=== PATIENT | female | born 1990 | race Caucasian/White ===

== ENCOUNTER 2017-11-15 21:17 | Inpatient (IN) | payer MEDICAID ==
[~2017-11-15 21:17] MED LIST: ACETAMINOPHEN 325 MG TAB PO PRN; ALBUAER3 INH; ALBUTEROL SULFATE 90 MCG/ACT HFA 8 GM INHALER INH PRN; ALPR.5 PO; AMIT10TA6 PO; AMITRIPTYLINE HCL 10 MG TAB PO PRN; DILA2TAB4 PO; LACTULOSE SYRUP 20 GM/30 ML CUP PO PRN; MAGNESIUM HYDROXIDE SUSP 30 ML CUP PO PRN; NALOXONE HCL 0.4 MG/ML AMP IV PUSH PRN; ONDANSETRON HCL 4 MG/2 ML VIAL IVP PRN; PIPERACIL-TAZO 4.5 GM PREMIX 100 ML IV SCH; ROPI1TAB PO; SENNOSIDES 8.6 MG TAB PO PRN; SODIUM CHLORIDE 0.9% FLUSH 10 ML FLUSH IV FLUSH PRN; TEMAZEPAM 15 MG CAP PO PRN; TRAM50 PO; VEDO1INJ IV; VEDOLIZUMAB 300 MG IV SCH; ZOFR8TAB PO
[2017-11-15 21:30] VITALS: BP 91/60; PULSE 76; RESP 20; TEMP 96.9; O2SAT 97
[2017-11-15] MEDS ORDERED: ALPRAZolam 0.5 MG TAB PO PRN (22:00)
[2017-11-15] MEDS ORDERED: traMADol HCL 50 MG TAB PO PRN (22:00)
[2017-11-15] MEDS: ONDANSETRON ODT 4 MG TAB PO SCH (22:04)
[2017-11-15] MEDS: DOCUSATE SODIUM 50 MG/SENNA 8.6 MG TAB PO SCH (22:04)
[2017-11-15] MEDS: HYDROmorphone HCL 2 MG TAB PO PRN (22:22)
[2017-11-15] MEDS: SODIUM CHLORIDE 0.9% FLUSH 10 ML FLUSH IV FLUSH SCH (22:23)
[2017-11-15] MEDS: SODIUM CHLOR 0.9% 1000 ML INJ 1,000 ML IV SCH (22:23)
[2017-11-15] MEDS: PIPERACILLIN/TAZ 4.5 GM VIAL 4.5 GM in SODIUM CHLORIDE 0.9% INJ 100 ML IV SCH (23:42)
[2017-11-16] VITALS (8 sets, daily range): BP systolic 70–91; BP diastolic 40–54; PULSE 59–107; RESP 18–20; TEMP 97–98.4; O2SAT 91–97
[2017-11-16] MEDS ORDERED: SODIUM CHLOR 0.9% 1000 ML INJ 1,000 ML IV ONE ×3 (04:30→11:30)
[2017-11-16] MEDS: ONDANSETRON ODT 4 MG TAB PO SCH ×3 (05:27→21:26)
[2017-11-16] MEDS: PIPERACILLIN/TAZ 4.5 GM VIAL 4.5 GM in SODIUM CHLORIDE 0.9% INJ 100 ML IV SCH ×4 (05:28→23:29)
[2017-11-16] MEDS: SODIUM CHLOR 0.9% 1000 ML INJ 1,000 ML IV SCH ×3 (05:34→23:30)
[2017-11-16 07:15] LABS: BASOPHIL % 0.2 % (0.0-2.0); EOSINOPHIL # 0.4 TH/MM3 (0-0.4); EOSINOPHIL % 5.4 % (0.0-4.0); HEMATOCRIT 34.1 % (35.0-46.0); HEMOGLOBIN 10.8 GM/DL (11.6-15.3); LYMPH % 28.2 % (9.0-44.0); LYMPHOCYTE # 2.3 TH/MM3 (1.0-4.8); MEAN CELL VOLUME 77.5 FL (80.0-100.0); MEAN CORPUSCULAR HEMOGLOBIN 24.6 PG (27.0-34.0); MEAN CORPUSCULAR HGB CONC 31.7 % (32.0-36.0); MEAN PLATELET VOLUME 8.7 FL (7.0-11.0); MONO % 7.5 % (0.0-8.0); MONOCYTE # 0.6 TH/MM3 (0-0.9); NEUT % 58.7 % (16.0-70.0); PLATELET COUNT 351 TH/MM3 (150-450); RED CELL DISTRIBUTION WIDTH 14.1 % (11.6-17.2); WHITE BLOOD COUNT 8.3 TH/MM3 (4.0-11.0)
[2017-11-16 08:08] LABS: BICARBONATE 25.4 MEQ/L (21.0-32.0); CALCIUM 7.3 MG/DL (8.5-10.1); CREATININE 0.84 MG/DL (0.50-1.00)
--- NOTE | 2017-11-16 08:56 | HHI.HP ---
[facility] Service [facility] Primary Care Physician Non-Staff Admission Diagnosis Abdominal pain Diagnoses: (1) Exacerbation of Crohn's disease Diagnosis: Principal Chief Complaint: Abdominal pain Travel History International Travel<30 Days: No Contact w/Intl Traveler <30 Da: No Traveled to Known Affected Are: No History of Present Illness Written by Kavita Shelton, acting as scribe for Dr. Vásquez on 11/16/17 at 08:49. Ms. Santizo is a 27-year-old female patient with a known medical history of Crohn's disease with history of right hemicolectomy, depression, anxiety who presented to the ED with complaints of right lower quadrant abdominal pain. Patient states that she has been having worsening abdominal pain in her right lower quadrant and loose stools for the last 3 days with roughly 5 bouts of diarrhea per day. Denies any recent hematochezia. Denies any fever, chills. Does admit to nausea and vomiting. Has been unable to keep anything down by mouth for 3 days. Patient does have a history of Crohn's disease with history of multiple hospitalizations related to her disease. Per GI she has been receiving Entyvio for the last few month every 90 days for her disease. At the time of assessment patient still complains of abdominal pain, worsening with breakfast this morning. Denies any diarrhea since hospitalization. Does see a GI specialist in [place], Dr. Hassan. Hemoglobin of 10.8, hematocrit 34.[address] showing that the the transverse and descending colon showing significant wall thickening with edema and some pericolonic vascular engorgement and inflammation, and the small bowel tract is mildly distended and contains stool in the distal small bowel, features suggestive of partial small- bowel obstruction. Review of Systems Constitutional: DENIES: Fever, Chills Eyes: DENIES: Blurred vision, Diplopia Respiratory: DENIES: Cough, Sputum production, Shortness of breath Cardiovascular: DENIES: Chest pain Gastrointestinal: COMPLAINS OF: Abdominal pain, Diarrhea, Nausea, Vomiting, DENIES: Bloody stools, Constipation Psychiatric: COMPLAINS OF: Anxiety Except as stated in HPI: all other systems reviewed are Neg Past Family Social History Past Medical History Anxiety Depression Crohn's disease Bipolar depression Restless leg syndrome Chronic anemia Fibromyalgia Past Surgical History Bilateral oophorectomy for ovarian cysts stent Right hemicolectomy Anterior cutaneous fistula Reported Medications Active Ultram (Tramadol HCl) 50 Mg Tab 50 Mg PO Q8H PRN Dilaudid (Hydromorphone HCl) 2 Mg Tab 2 Mg PO Q4H PRN Reported Entyvio Inj (Vedolizumab Inj) 300 Mg Inj 300 Mg IV [id number] Ropinirole 1 Mg Tab 1.5 Mg PO HS Proair Hfa 8.5 GM Inh (Albuterol Sulfate) 90 Mcg/Act Aer 2 Puff INH Q4-6H PRN 108 mcg/actuation Zofran (Ondansetron HCl) 8 Mg Tab 8 Mg PO TID Amitriptyline (Amitriptyline HCl) 10 Mg Tab 10 Mg PO HS PRN Xanax (Alprazolam) 0.5 Mg Tab 0.5 Mg PO Q8H PRN Allergies: Coded Allergies: No Known Allergies (Unverified Allergy, Unknown, 11/15/17) Active Ordered Medications Current Medications Medications (Trade) Dose Ordered Sig/Miguel Route Start Time Stop Time Status Last Admin (Proair Hfa Inh) 2 puff Q4HR PRN INH 11/15/17 00:00 (Xanax) 0.5 mg Q8HR PRN PO 11/15/17 22:00 11/15/17 22:22 (Elavil) 10 mg HS PRN PO 11/15/17 21:00 (Dilaudid) 2 mg Q4HR PRN PO 11/15/17 20:00 11/15/17 22:22 (Requip) 1.5 mg HS PO 11/15/17 21:00 (Ultram) 50 mg Q8HR PRN PO 11/15/17 22:00 (Zofran Odt) 8 mg Q8HR PO 11/15/17 22:00 11/16/17 05:27 Non-Formulary Medication 300 mg [id number] IV 11/15/17 18:15 Future Hold Sodium Chloride 1,000 ml @ 100 mls/hr Q10H IV 11/15/17 18:10 11/16/17 05:34 (NS Flush) 2 ml UNSCH PRN IV FLUSH 11/15/17 18:15 (NS Flush) 2 ml BID IV FLUSH 11/15/17 21:00 11/15/17 22:23 (Tylenol) 650 mg Q4HR PRN PO 11/15/17 20:00 (Zofran Inj) 4 mg Q6HR PRN IVP 11/15/17 19:00 (Restoril) 15 mg HS PRN PO 11/15/17 18:15 (Narcan Inj) 0.4 mg UNSCH PRN IV PUSH 11/15/17 18:15 (Leah-Colace) 1 tab BID PO 11/15/17 21:00 (Milk Of Magnesia Liq) 30 ml Q12HR PRN PO 11/15/17 21:00 (Senokot) 17.2 mg Q12HR PRN PO 11/15/17 21:00 (Dulcolax Supp) 10 mg DAILY PRN RECTAL 11/16/17 09:00 (Lactulose Liq) 30 ml DAILY PRN PO 11/15/17 20:00 Piperacillin Sod/ Tazobactam Sod 4.5 gm/Sodium Chloride 100 ml @ 200 mls/hr Q6HR IV 11/16/17 00:00 11/16/17 05:28 Family History Family medical history significant for DM, HTN and dyslipidemia. Social History Does admit smoking 1/4-1/2ppd cigarettes for 9 years. Denies any alcohol use. Denies any illicit drug use. Physical Exam Vital Signs Vital Signs Date Time Temp Pulse Resp B/P (MAP) Pulse Ox O2 Delivery O2 Flow Rate FiO2 11/16/17 07:30 97.0 65 20 86/54 (65) 96 11/16/17 06:05 59 74/52 (59) 11/16/17 04:15 75 18 70/40 (50) 96 11/16/17 01:09 96 21 11/16/17 00:00 97.4 92 20 85/53 (64) 96 11/15/17 21:30 96.9 76 20 91/60 (70) 97 Physical Exam GENERAL: This is a well-nourished, well-developed patient, in no apparent distress. SKIN: No rashes, ecchymoses or lesions. Warm and dry. HEAD: Atraumatic. Normocephalic. EYES: Pupils equal round and reactive. Extraocular motions intact. No scleral icterus. No injection or drainage. ENT: Nose without bleeding, purulent drainage or septal hematoma. Throat without erythema, tonsillar hypertrophy or exudate. Uvula midline. Airway patent. NECK: Trachea midline. No JVD or lymphadenopathy. Supple, nontender, no meningeal signs. CARDIOVASCULAR: Regular rate and rhythm without murmurs, gallops, or rubs. RESPIRATORY: Clear to auscultation. Breath sounds equal bilaterally. No wheezes , rales, or rhonchi. GASTROINTESTINAL: Abdomen soft, nondistended. Pain to palpation in right lower quadrant, pressure-like in nature. MUSCULOSKELETAL: Extremities without clubbing, cyanosis, or edema. No joint tenderness, effusion, or edema noted. NEUROLOGICAL: Awake and alert. Cranial nerves II through XII intact. Motor and sensory grossly within normal limits. Five out of 5 muscle strength in all muscle groups. Normal speech. Laboratory Laboratory Tests Test 11/16/17 06:40 11/16/17 08:27 White Blood Count 8.3 Red Blood Count 4.40 Hemoglobin 10.8 Hematocrit 34.1 Mean Corpuscular Volume 77.5 Mean Corpuscular Hemoglobin 24.6 Mean Corpuscular Hemoglobin Concent 31.7 Red Cell Distribution Width 14.1 Platelet Count 351 Mean Platelet Volume 8.7 Neutrophils (%) (Auto) 58.7 Lymphocytes (%) (Auto) 28.2 Monocytes (%) (Auto) 7.5 Eosinophils (%) (Auto) 5.4 Basophils (%) (Auto) 0.2 Neutrophils # (Auto) 5.0 Lymphocytes # (Auto) 2.3 Monocytes # (Auto) 0.6 Eosinophils # (Auto) 0.4 Basophils # (Auto) 0.0 CBC Comment AUTO DIFF Differential Comment AUTO DIFF CONFIRMED Blood Urea Nitrogen 12 Creatinine 0.84 Random Glucose 75 Calcium Level 7.3 Sodium Level 141 Potassium Level 3.9 Chloride Level 108 Carbon Dioxide Level 25.4 Anion Gap 8 Estimat Glomerular Filtration Rate 81 Result Diagram: 11/16/1740 11/16/17639 Septic Shock Reassessment Septic shock perfusion: reassessment completed Caprini VTE Risk Assessment Caprini VTE Risk Assessment: No/Low Risk (score <= 1) Caprini Risk Assessment Model Point Value = 1 Point Value = 2 Point Value = 3 Point Value = 5 Age 41-60 Minor surgery BMI > 25 kg/m2 Swollen legs Varicose veins or History of unexplained or recurrent spontaneous Oral contraceptives or hormone replacement Sepsis (< 1 month) Serious lung disease, including pneumonia (< 1 month) Abnormal pulmonary function Acute myocardial infarction Congestive heart failure (< 1 month) History of inflammatory bowel disease Medical patient at bed rest Age 61-74 Arthroscopic surgery Major open surgery (> 45 min) Laparoscopic surgery (> 45 min) Malignancy Confined to bed (> 72 hours) Immobilizing plaster cast Central venous access Age >= 75 History of VTE Family history of VTE Factor V Leiden Prothrombin [id number] Lupus anticoagulant Anticardiolipin antibodies Elevated serum homocysteine Heparin-induced thrombocytopenia Other congenital or acquired thrombophilia Stroke (< 1 month) Elective arthroplasty Hip, pelvis, or leg fracture Acute spinal cord injury (< 1 month) Prophylaxis Regimen Total Risk Factor Score Risk Level Prophylaxis Regimen 0-1 Low Early ambulation 2 Moderate Order ONE of the following: *Sequential Compression Device (SCD) *Heparin 5000 units SQ BID 3-4 Higher Order ONE of the following medications: *Heparin 5000 units SQ TID *Enoxaparin/Lovenox 40 mg SQ daily (WT < 150 kg, CrCl > 30 mL/min) *Enoxaparin/Lovenox 30 mg SQ daily (WT < 150 kg, CrCl > 10-29 mL/min) *Enoxaparin/Lovenox 30 mg SQ BID (WT < 150 kg, CrCl > 30 mL/min) AND/OR *Sequential Compression Device (SCD) 5 or more Highest Order ONE of the following medications: *Heparin 5000 units SQ TID (Preferred with Epidurals) *Enoxaparin/Lovenox 40 mg SQ daily (WT < 150 kg, CrCl > 30 mL/min) *Enoxaparin/Lovenox 30 mg SQ daily (WT < 150 kg, CrCl > 10-29 mL/min) *Enoxaparin/Lovenox 30 mg SQ BID (WT < 150 kg, CrCl > 30 mL/min) AND *Sequential Compression Device (SCD) Assessment and Plan Assessment and Plan Ms. Santizo is a 27-year-old female patient with a known medical history of Crohn's disease, depression, anxiety who presented to the ED with complaints of right lower quadrant abdominal pain. Exacerbation of Crohn's disease with associated abdominal pain, nausea and vomiting x [address] scan reviewed showing evidence of active colitis in the descending and transverse colon and possible partial small-bowel obstruction Patient admits to multiple hospitalizations per year for Crohn's disease exacerbation. GI consulted and seen patient, appreciate further input and recommendations. Failure of previous conventional therapy and three different biological agents in the past. GI started on Asacol. Will add Bentyl to medication regimen. Control pain, IV Dilaudid available PRN, monitor BP. Continue IV antibiotics, Zosyn IV. Continue IVF. Status post 3 L NS bolus. BP labile, continue to monitor trends closely. Control nausea, scheduled Zofran. Keep on liquid diet for now. Continue IV steroids. Chronic anxiety: Continue home Xanax. DVT Prophylaxis: SCDs. This note was transcribed by PILAR Marshall. I, Dr. Mary Vásquez personally performed the history, physical exam, and medical decision making; and confirmed the accuracy of the information in the transcribed note. Authenticated by Dr. Mary Vásquez on 11/16/17 at 08:49. Kavita Shelton Nov 16, 2017 08:56 Mary Vásquez MD Nov 16, 2017 17:24
[2017-11-16] MEDS: DOCUSATE SODIUM 50 MG/SENNA 8.6 MG TAB PO SCH ×3 (08:57→21:26)
[2017-11-16] MEDS: SODIUM CHLORIDE 0.9% FLUSH 10 ML FLUSH IV FLUSH SCH ×2 (08:57→21:27)
[2017-11-16] MEDS ORDERED: BISACODYL 10 MG SUPP RECTAL PRN (09:00)
[2017-11-16 09:13] LABS: TOTAL PROTEIN 5.8 GM/DL (6.4-8.2)
--- NOTE | 2017-11-16 10:40 | MB ---
cc: JOSH SEVERINO MD DATE OF CONSULTATION: 11/16/17 REASON FOR CONSULTATION Known Crohn's disease. HISTORY OF PRESENT ILLNESS A 27-year-old female patient with a known case of ileocolonic Crohn's disease diagnosed 11 years ago complicated by intestinal obstruction requiring right hemicolectomy, followed by another complication in the form of anterior cutaneous fistula connecting to the bowel and scar of previous . The patient was treated with aggressive treatment including three different types of biological agents without any response who had several exacerbations of her Crohn's disease over the last few years requiring treatment with a new biological agent using Entyvio every 90 days that was started a few months ago. The patient presented to the hospital complaining of progressive abdominal pain mostly right upper quadrant, increasing severity over the last few days to a degree that she required hospitalization. The patient also complained of nausea especially with eating solid food but denied any vomiting. Denies any change in weight or appetite. She did complain of loose bowel movement but no blood and she is passing gas. The patient was seen in the emergency room, had laboratory testing that is showing evidence of anemia with a hemoglobin of 10.8, hematocrit 34.1. Her CAT scan did show that the transverse and descending colon showing significant wall thickening with edema and some pericolonic vascular engorgement and inflammation, and the small bowel tract is mildly distended and contains stool in the distal small bowel, features suggestive of partial small-bowel obstruction. The patient was admitted for further evaluation. PAST MEDICAL HISTORY Crohn's disease diagnosed 11 years ago. PAST SURGICAL HISTORY 1. Anterior cutaneous fistula 2. Right hemicolectomy. 3. Bilateral oophorectomy for ovarian cysts. CURRENT MEDICATIONS 1. Currently on Entyvio every 90 days. 2. Alprazolam. 3. Tramadol. 4. Zofran. 5. Amitriptyline. 6. Dulcolax. 7. Milk of Magnesia. 8. Lactulose. ALLERGIES NO KNOWN DRUG ALLERGIES. PSYCHOSOCIAL HISTORY The patient is and mother of a 5-year-old boy. Denies IV drug use. FAMILY HISTORY Noncontributory. REVIEW OF SYSTEMS All 14-point review of systems negative other than the ones in the History of Present Illness. PHYSICAL EXAMINATION GENERAL: The patient was found to be comfortable, not in distress or in pain. Hemodynamically stable. HEAD AND NECK EXAMINATION: Normocephalic, atraumatic. Pupils equal and reactive to light. Slightly pallor. NECK: Supple neck. No lymphadenopathy. No thyromegaly. CHEST: Clear to auscultation bilaterally. No crackles or wheezes. HEART: Regular rate and rhythm. No murmurs. ABDOMEN: Abdomen showing scars of previous surgeries. Hypoactive bowel sounds. Minimal distension. No hepatosplenomegaly. No palpable masses. EXTREMITIES: Normal pulses. No edema. NEUROLOGIC EXAMINATION: Cranial nerves II through XII are grossly intact. No motor or sensory deficits. SKIN: No rashes. LABORATORY DATA Labs showed white count 8.3, hemoglobin 10.8, hematocrit 34.1, MCV and MCH low, platelet count of 351. Chemistry showing normal electrolytes. IMAGING CT scan as in History of Present Illness. ASSESSMENT AND PLAN A 27-year-old female patient who is known to have Crohn's disease for 11 years who presented with the following problems: 1. Abdominal pain, nausea of several days' duration. 2. CT scan showing evidence of active colitis in the descending and transverse colon and possible partial small-bowel obstruction. 3. Failure of previous conventional therapy and three different biological agents in the past. 4. Status post hemicolectomy and fistula formation. 5. 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 Iron deficiency anemia. RECOMMENDATION 1. We will keep the patient on a liquid diet. 2. Pain control. 3. IV Solu-Medrol. 4. Asacol ( effective for Colonic Crohn's) 5. Review previous colonoscopy reports from previous hospitalization in [place]. 6. Conservative approach. 7. Further recommendations to follow. Thank you for the consult. Josh MELVIN/BJF /8:32 AM /9:48 AM RAMIREZ
[2017-11-16] MEDS: HYDROmorphone HCL 2 MG TAB PO PRN ×3 (11:49→21:26)
[2017-11-16] MEDS: DICYCLOMINE HCL 20 MG TAB PO SCH ×3 (13:00→21:00)
[2017-11-16] MEDS: MESALAMINE HD 800 MG DELAYED RELEASE TAB PO SCH ×2 (14:11→21:26)
[2017-11-17] VITALS: BP 82/51; PULSE 76; RESP 18; TEMP 99; O2SAT 95
[2017-11-17] MEDS: ONDANSETRON ODT 4 MG TAB PO SCH (05:52)
[2017-11-17] MEDS: MESALAMINE HD 800 MG DELAYED RELEASE TAB PO SCH (05:52)
[2017-11-17] MEDS: HYDROmorphone HCL 2 MG TAB PO PRN ×2 (05:53→10:48)
[2017-11-17] MEDS: PIPERACILLIN/TAZ 4.5 GM VIAL 4.5 GM in SODIUM CHLORIDE 0.9% INJ 100 ML IV SCH ×2 (05:53→12:07)
[2017-11-17 08:00] VITALS: BP 94/62; PULSE 61; RESP 12; TEMP 98.2; O2SAT 96
[2017-11-17] MEDS: SODIUM CHLORIDE 0.9% FLUSH 10 ML FLUSH IV FLUSH SCH (09:00)
[2017-11-17] MEDS: DICYCLOMINE HCL 20 MG TAB PO SCH ×2 (09:00→12:13)
[2017-11-17] MEDS: DOCUSATE SODIUM 50 MG/SENNA 8.6 MG TAB PO SCH (09:00)
--- NOTE | 2017-11-17 09:10 | HHI.PR ---
Subjective Remarks Feels much better. Minimal abd pain , no fever or chils no diarhea . No n/v/. [place] to keep down food regular. Cleared by GI for DC Objective Vitals Vital Signs Date Time Temp Pulse Resp B/P (MAP) Pulse Ox O2 Delivery O2 Flow Rate FiO2 11/17/17 00:00 99.0 76 18 82/51 (61) 95 11/16/17 22:13 21 11/16/17 20:00 98.4 67 20 91/54 (66) 96 11/16/17 15:50 97.1 74 20 89/53 (65) 97 11/16/17 11:50 98.0 107 20 90/52 (65) 91 I/O 11/16/17 11/16/17 11/16/17 11/17/17 11/17/17 11/17/17 07:00 15:00 23:00 07:00 15:00 23:00 Intake Total 2210 ml 2100 ml 972 ml 1090 ml Balance 2210 ml 2100 ml 972 ml 1090 ml Intake Oral 240 ml 360 ml 240 ml IV Total 1970 ml 2100 ml 612 ml 850 ml # Voids 2 8 3 # Bowel Movements 2 2 Result Diagram: 11/16/17 0640 11/16/17 0640 Objective Remarks GENERAL: This is a well-nourished, well-developed patient, in no apparent distress. CARDIOVASCULAR: Regular rate and rhythm without murmurs, gallops, or rubs. RESPIRATORY: Clear to auscultation. Breath sounds equal bilaterally. No wheezes , rales, or rhonchi. GASTROINTESTINAL: Abdomen soft, nondistended. Pain to palpation in right lower quadrant, pressure-like in nature. MUSCULOSKELETAL: Extremities without clubbing, cyanosis, or edema. No joint tenderness, effusion, or edema noted. NEUROLOGICAL: Awake and alert. Cranial nerves II through XII intact. Motor and sensory grossly within normal limits. Five out of 5 muscle strength in all muscle groups. Normal speech. A/P Problem List: (1) Exacerbation of Crohn's disease ICD Code: K50.90 - Crohn's disease, unspecified, without complications Status: Acute Assessment and Plan Ms. Santizo is a 27-year-old female patient with a known medical history of Crohn's disease, depression, anxiety who presented to the ED with complaints of right lower quadrant abdominal pain. Exacerbation of Crohn's disease with associated abdominal pain, nausea and vomiting x 3 days. Iron deficiency anemia. CT scan reviewed showing evidence of active colitis in the descending and transverse colon and possible partial small-bowel obstruction Patient admits to multiple hospitalizations per year for Crohn's disease exacerbation. GI consulted and seen patient, appreciate further input and recommendations. Failure of previous conventional therapy and three different biological agents in the past. GI started on Asacol. Will add Bentyl to medication regimen. Control pain, IV Dilaudid available PRN, monitor BP. Continue IV antibiotics, Zosyn IV. Continue IVF. Status post 3 L NS bolus. BP labile, continue to monitor trends closely. Control nausea, scheduled Zofran. Keep on liquid diet for now. Continue IV steroids. Continue Asacol. Conservative approach Chronic anxiety: Continue home Xanax. DVT Prophylaxis: SCDs. Improving. DC plan: cleared by GI DC home Discharge Planning DC home in stable condition to follow up as OP with PC and consultants Diet regular Diet as tolerated Activity Ad katie as tolerated Medications per med reconciliations Mary Vásquez MD Nov 17, 2017 09:10
[2017-11-17] MEDS ORDERED: MESA1TAB2 PO (09:19)
[2017-11-17] MEDS ORDERED: DICY20TA10 PO (09:19)
[2017-11-17] MEDS ORDERED: MEDR4PAK PO (09:19)
[2017-11-17] MEDS ORDERED: METR-1 PO (09:20)
[2017-11-17] MEDS ORDERED: CIPR500T2 PO (09:20)
--- NOTE | 2017-11-17 09:20 | HHI.DCPOC ---
Discharge Care Plan Goals to Promote Your Health * To prevent worsening of your condition and complications * To maintain your health at the optimal level Directions to Meet Your Goals Take your medications as prescribed Follow your dietary instruction Follow activity as directed Keep your appointments as scheduled Take your immunizations and boosters as scheduled If your symptoms worsen call your PCP, if no PCP go to Urgent Care Center or Emergency Room Smoking is Dangerous to Your Health. Avoid second hand smoke Call the 24-hour hour crisis hotline for domestic abuse at Mary Vásquez MD Nov 17, 2017 09:20
[2017-11-17] MEDS: SODIUM CHLOR 0.9% 1000 ML INJ 1,000 ML IV SCH (10:54)
[2017-11-17] MEDS ORDERED: DILA2TAB4 PO (11:55)
[2017-11-17] MEDS ORDERED: TRAM50 PO (11:55)
[2017-11-17 12:00] VITALS: BP 85/58; PULSE 83; RESP 14; TEMP 97.8; O2SAT 93
--- NOTE | 2017-11-17 13:56 | HHI.GIFU ---
Subjective Remarks Feeling better and tolerating diet well, requesting to go home. Objective Vitals I&O Vital Signs Date Time Temp Pulse Resp B/P (MAP) Pulse Ox O2 Delivery O2 Flow Rate FiO2 11/17/17 12:00 97.8 83 14 85/58 (67) 93 11/17/17 08:00 98.2 61 12 94/62 (73) 96 11/17/17 00:00 99.0 76 18 82/51 (61) 95 11/16/17 22:13 21 11/16/17 20:00 98.4 67 20 91/54 (66) 96 11/16/17 15:50 97.1 74 20 89/53 (65) 97 I/O 11/16/17 11/16/17 11/16/17 11/17/17 11/17/17 11/17/17 07:00 15:00 23:00 07:00 15:00 23:00 Intake Total 2210 ml 2100 ml 972 ml 1090 ml 1746 ml Balance 2210 ml 2100 ml 972 ml 1090 ml 1746 ml Intake Oral 240 ml 360 ml 240 ml 458 ml IV Total 1970 ml 2100 ml 612 ml 850 ml 1288 ml # Voids 2 8 3 # Bowel Movements 2 2 Laboratory Laboratory Tests Test 11/17/17 07:07 C-Reactive Protein 3.50 Date/Time Source Procedure Growth Status 11/16/17 16:30 Stool Stool Cryptosporidium Exam Pending Resulted 11/16/17 16:30 Stool Stool Stool Pus (JUDY) - Final MANY WBC'S Resulted 11/16/17 16:30 Stool Stool Giardia Antigen (JUDY) Pending Resulted Physical Exam HEENT: Pupils round and reactive to light; normocephalic; atraumatic; no jaundice. Throat is clear. NECK: Neck is supple, no JVD, no lymphadenopathy. CHEST: Chest is clear to auscultation and percussion. CARDIAC: Regular rate and rhythm with no murmur gallop or rubs. ABDOMEN: Scar of previous surgeries, soft and lax EXTREMITIES: No clubbing, cyanosis, or edema. SKIN: Normal; no rash; no jaundice. HAND PLEATER: No focal deficits; alert and oriented times three. Assessment and Plan Physician Comments A 27-year-old female patient who is known to have Crohn's disease for 11 years who presented with the following problems: 1. Abdominal pain, nausea of several days' duration. 2. CT scan showing evidence of active colitis in the descending and transverse colon and possible partial small-bowel obstruction. 3. Failure of previous conventional therapy and three different biological agents in the past. 4. Status post hemicolectomy and fistula formation. 5. 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 Iron deficiency anemia. RECOMMENDATION KINSEY Agree with DC plan T[place]red Prednisone dose Asacol Follow up in the of office within few days. Josh Oneil MD Nov 17, 2017 13:56
== END 2017-11-17 15:22 | disposition home or self-care (01) | DRG 386 ==
LOC: PHEDDLT 21:17 → PH3A 21:18 → OBSVTOIN 21:18
PROVIDERS: ADMIT Hospitalist; ATTEND Hospitalist
DX: K50.912 Crohn's disease, unspecified, with intestinal obstruction (principal); D50.9 Iron deficiency anemia, unspecified; F32.9 Major depressive disorder, single episode, unspecified; F41.9 Anxiety disorder, unspecified; G25.81 Restless legs syndrome; F17.210 Nicotine dependence, cigarettes, uncomplicated; M79.7 Fibromyalgia; Z90.49 Acquired absence of other specified parts of digestive tract
CPT/HCPCS: 74177; 80048; 80053; 81001; 83605; 83690; 84155; 85025; 86140; 87205; 87328; 87329; 87425; 87506; 96374; 96375; G8987-GP; G8988-GP; J2270; J2405; J2543; J7030; Q9967